=== PATIENT | male | born 1975 | race African-American/Black ===

== ENCOUNTER 2019-05-05 18:49 | Emergency (ER) | payer OTHER ==
[2019-05-05] MEDS ORDERED: Sodium Chloride 0.9% 10 ML Syringe FLUSH PRN (19:42)
[2019-05-05] MEDS ORDERED: Sodium Chloride 0.9% 2.5 ML Syringe FLUSH PRN (19:42)
[2019-05-05] MEDS ORDERED: Ondansetron 4 MG/2 ML SDV IVPUSH ONE (19:42)
[2019-05-05] MEDS ORDERED: Sodium Chloride 0.9% 1,000 ML IV SCH (19:45)
[2019-05-05] MEDS ORDERED: Ketorolac 30 MG/ML SDV IVPUSH ONE (20:51)
[2019-05-05 20:54] LABS: BLOOD UREA NITROGEN,BUN 19 mg/dL (7.0-18.0); CARBON DIOXIDE,CO2 26.4 mmol/L (21.0-32.0); CHLORIDE,CL 96 mmol/L (98-107); GLUCOSE RANDOM 171 mg/dL (74-106); POTASSIUM,K 4.3 mmol/L (3.5-5.1); SODIUM,NA 136 mmol/L (136-148)
[2019-05-05] MEDS ORDERED: Iopamidol 755 Mg/ML 100 ML Bottle IVPUSH STA (22:09)
--- NOTE | 2019-05-05 22:57 | CT ---
INDICATION: Abdominal pain. TECHNIQUE: Contrast and CT abdomen and pelvis coronal size re-formatted images obtained. COMPARISON: No comparison studies are available Findings: Heart size is normal. Lung bases are clear. No pleural effusion or pericardial effusion. Fatty liver. Gallbladder, pancreas adrenal glands are unremarkable spleen is unremarkable. Symmetric enhancement of both kidneys which are unremarkable. There fluid-filled mildly prominent small bowel loops. There is mesenteric stranding and fluid in the right lower quadrant. In the distal ileum just proximal to the terminal ileum there is an area of focal narrowing and mucosal hyperenhancement. Few additional subtle skip areas of small bowel narrowing. Small amount of fluid in the pelvis. Normal appendix. Urinary bladder decompressed. No suspicious bony lesions. IMPRESSION: 1. Mild fluid-filled prominent small bowel loops with mesenteric stranding fluid in the right lower quadrant. Skip areas of small bowel narrowing. Findings may represent enteritis versus possible Crohn`s disease. 2. Normal appendix. Please note that all CT scans at this facility use dose modulation, iterative reconstruction, and/or weight-based dosing when appropriate to reduce radiation dose to as low as reasonably achievable. Dictated by Autumn Hmuphries MD @ May 05 2019 10:45PM Signed by Dr. Autumn Humphries @ May 05 2019 10:54PM
--- NOTE | 2019-05-05 23:03 | CR ---
INDICATION: Shortness of breath TECHNIQUE: Single view chest. FINDINGS: The lungs are clear. The heart, mediastinum and pulmonary vessels are of normal size. There is no evidence of pleural disease. IMPRESSION: Negative chest. Dictated by Autumn Humphries MD @ May 05 2019 11:01PM Signed by Dr. Autumn Humphries @ May 05 2019 11:02PM
--- NOTE | 2019-05-05 23:24 | EDM.PDOC ---
ED [facility] GENERAL MEDICAL PROBLEM - General Chief Complaint: Gastrointestinal Problem Stated Complaint: bad cramps Time Seen by Provider: 05/05/19 21:09 - History of Present Illness INITIAL COMMENTS - FREE TEXT/NARRATIVE: HPI 43-year-old gentleman presents for evaluation of one day of N/V/D. Notes resolved symptoms, endorses prior crampy abdominal pain. No dysuria, urinary frequency, chest pain, shortness breath. No identifiable provoking or relieving symptoms. They will M/S/F/SocHx notable for: please see HPI; remainder reviewed with patient and in chart. ROS: Negative constitutional, eye, cardiovascular, pulmonary, GI, , MSK, skin , neurologic, psychiatric, endocrine unless noted in the HPI. Exam Gen: Pleasant, non-toxic appearing, resting comfortably. HEENT: NC, AT, PEERL, EOMI. Resp: Clear to auscultation bilaterally, normal work of breathing, no accessory muscle usage. Card: Regular rate and rhythm with no murmurs, rubs, or gallops, extremities warm and well perfused. GI: Non-tender to palpation throughout all quadrants, no focal tenderness at McBurney's point, negative Page's sign, non-distended, no rebound or guarding. : No suprapubic tenderness to palpation. MSK: No visible deformities, strength and tone without visually appreciable deficit. Skin: Normal color with no visible lesions. Neuro: alert and oriented 3, no facial asymmetry, vision and hearing WNL. Psych: Mood and affect appropriate. Labs / Imaging: WBC 20.1, HB 16.6, sodium 136, potassium 4.3, glucose 171, AST 25, ALT 34, alkaline phosphatase 60, total bilirubin 0.7, lipase 181. Troponin <0.050. UA negative nitrite, negative leukocyte esterase, rare bacteria. CXR: no acute cardiopulmonary disease process. CT abdomen/pelvis: multiple fluid-filled prominent small bowel loops with mesenteric stranding fluid in the right lower quadrant. Skip areas of bowel narrowing. Findings may represent enteritis versus possible Crohns disease. 2. Normal appendix. EKG: SR 63 bpm, QTc [address] segment elevations or depressions. MDM Previous chart, nursing note, labs, imaging, and vitals reviewed. A: 43-year-old gentleman presents for evaluation of one day of N/V/D. DDx: UTI, ureterolithiasis, pyelonephritis, acute appendicitis, mesenteric adenitis, biliary disease Evaluation: CT with findings concerning for enteritis versus Crohns disease. Discuss management options with patient, patient reports that he has had resolution symptoms with return of appetite while in the emergency department. Offered admission (recommended), patient wished to be discharged as he is feeling better. Reviewed risks and benefits, concern for Sears diagnosis, and need for prompt PCP follow-up. In an abundance of caution, the patient was prescribed ciprofloxacin and Flagyl for treatment of possible bacterial enteritis versus initial treatment of crowns, patient prescribed Zofran for nausea, patient instructed follow-up with his PCP within 1-2 days. Return to care precautions provided. Impression: abdominal pain, Crohns versus enteritis. abdomen Pain Score (Numeric/FACES): 8 - Related Data Allergies Allergy/AdvReac Type Severity Reaction Status Date / Time No Known Allergies Allergy Verified 05/05/19 19:30 Home Meds: Home Meds Allopurinol [Zyloprim] 100 mg PO DAILY 05/05/19 [History] Ciprofloxacin HCl [Cipro] 500 mg PO BID #20 tablet 05/05/19 [Rx] Naltrexone 50 mg PO DAILY 05/05/19 [History] Ondansetron [Zofran ODT] 4 mg PO Q6H PRN #10 tab.dis 05/05/19 [Rx] metroNIDAZOLE [Flagyl] 500 mg PO Q12H #20 tab 05/05/19 [Rx] Past Medical History Musculoskeletal History: Reports: Gout Psychiatric History: Reports: Addiction, Other (See Below) Other Psychiatric History: alcohol - Past Surgical History Musculoskeletal Surgical History: Reports: Carpal Tunnel Social & Family History - Family History Family Medical History: Noncontributory - Tobacco Use Smoking Status *Q: Never Smoker - Recreational Drug Use Recreational Drug Use: No ED ROS GENERAL - Review of Systems Review Of Systems: See Below ED EXAM, GENERAL - Physical Exam Exam: See Below Course - Vital Signs Last Recorded V/S: Last Vital Signs Temp 37.1 C 05/05/19 19:00 Pulse 67 05/05/19 20:49 Resp 18 05/05/19 20:49 BP 151/90 H 05/05/19 20:49 Pulse Ox 97 05/05/19 19:00 - Orders/Labs/Meds Orders: Active Orders 24 hr Category Date Time Status EKG 12 Lead [EKG Documentation Completion] [RC] STAT Care 05/05/19 23:21 Active Sodium Chloride 0.9% [Normal Saline] 1,000 ml Med 05/05/19 19:45 Active IV ASDIRECTED Sodium Chloride 0.9% [Saline Flush] Med 05/05/19 19:42 Active 10 ml FLUSH ASDIRECTED PRN Sodium Chloride 0.9% [Saline Flush] Med 05/05/19 19:42 Active 2.5 ml FLUSH ASDIRECTED PRN Saline Lock Insert [OM.PC] Stat Oth 05/05/19 19:42 Ordered Medication Orders Sodium Chloride (Normal Saline) 1,000 mls @ 999 mls/hr IV ASDIRECTED MANNY Last Admin: 05/05/19 19:47 Dose: 999 mls/hr Sodium Chloride (Saline Flush) 10 ml FLUSH ASDIRECTED PRN PRN Reason: Keep Vein Open Sodium Chloride (Saline Flush) 2.5 ml FLUSH ASDIRECTED PRN PRN Reason: Keep Vein Open Labs: Laboratory Tests 05/05/19 05/05/19 05/05/19 Range/Units 19:15 19:15 19:15 WBC 20.10 H (4.0-11.0) K/uL RBC 5.71 (4.50-5.90) M/uL Hgb 16.6 (13.0-17.0) g/dL Hct 48.8 (38.0-50.0) % MCV 85.5 (80.0-98.0) fL MCH 29.1 (27.0-32.0) pg MCHC 34.0 (31.0-37.0) g/dL RDW Std Deviation 41.9 (28.0-62.0) fl RDW Coeff of Jam 14 (11.0-15.0) % Plt Count 320 (150-400) K/uL MPV 9.80 (7.40-12.00) fL Neut % (Auto) 81.8 H (48.0-80.0) % Lymph % (Auto) 9.8 L (16.0-40.0) % [place] % (Auto) 8.3 (0.0-15.0) % Eos % (Auto) 0.0 (0.0-7.0) % Baso % (Auto) 0.1 (0.0-1.5) % Neut # (Auto) 16.5 H (1.4-5.7) K/uL Lymph # (Auto) 2.0 (0.6-2.4) K/uL [place] # (Auto) 1.7 H (0.0-0.8) K/uL Eos # (Auto) 0.0 (0.0-0.7) K/uL Baso # (Auto) 0.0 (0.0-0.1) K/uL Nucleated RBC % 0.0 /100WBC Nucleated RBCs # 0 K/uL Sodium 136 (136-148) mmol/L Potassium 4.3 (3.5-5.1) mmol/L Chloride 96 L (98-107) mmol/L Carbon Dioxide 26.4 (21.0-32.0) mmol/L BUN 19 H (7.0-18.0) mg/dL Creatinine 1.1 (0.8-1.3) mg/dL Est Cr Clr Drug Dosing 85.70 mL/min Estimated GFR (MDRD) > 60.0 ml/min Glucose 171 H (74-106) mg/dL Calcium 10.0 (8.5-10.1) mg/dL Total Bilirubin 0.7 (0.2-1.0) mg/dL AST 25 (15-37) IU/L ALT 34 (14-63) IU/L Alkaline Phosphatase 60 (46-116) U/L Troponin I (0.000-0.056) ng/mL Total Protein 9.0 H (6.4-8.2) g/dL Albumin 4.3 (3.4-5.0) g/dL Globulin 4.7 H (2.6-4.0) g/dL Albumin/Globulin Ratio 0.9 (0.9-1.6) Amylase (25-115) U/L Lipase 181 (73-393) U/L Urine Color Urine Appearance Urine pH (5.0-8.0) Ur Specific [place] (1.001-1.035) Urine Protein (NEGATIVE) mg/dL Urine Glucose (UA) (NEGATIVE) mg/dL Urine Ketones (NEGATIVE) mg/dL Urine Occult Blood (NEGATIVE) Urine Nitrite (NEGATIVE) Urine Bilirubin (NEGATIVE) Urine Urobilinogen (<2.0) EU/dL Ur Leukocyte Esterase (NEGATIVE) Urine RBC (0-2/HPF) Urine WBC (0-5/HPF) Ur Epithelial Cells (NONE-FEW) Urine Bacteria (NEGATIVE) Urine Mucus (NONE-MOD) 05/05/19 05/05/19 05/05/19 Range/Units 19:15 19:15 21:05 WBC (4.0-11.0) K/uL RBC (4.50-5.90) M/uL Hgb (13.0-17.0) g/dL Hct (38.0-50.0) % MCV (80.0-98.0) fL MCH (27.0-32.0) pg MCHC (31.0-37.0) g/dL RDW Std Deviation (28.0-62.0) fl RDW Coeff of Jam (11.0-15.0) % Plt Count (150-400) K/uL MPV (7.40-12.00) fL Neut % (Auto) (48.0-80.0) % Lymph % (Auto) (16.0-40.0) % [place] % (Auto) (0.0-15.0) % Eos % (Auto) (0.0-7.0) % Baso % (Auto) (0.0-1.5) % Neut # (Auto) (1.4-5.7) K/uL Lymph # (Auto) (0.6-2.4) K/uL [place] # (Auto) (0.0-0.8) K/uL Eos # (Auto) (0.0-0.7) K/uL Baso # (Auto) (0.0-0.1) K/uL Nucleated RBC % /100WBC Nucleated RBCs # K/uL Sodium (136-148) mmol/L Potassium (3.5-5.1) mmol/L Chloride (98-107) mmol/L Carbon Dioxide (21.0-32.0) mmol/L BUN (7.0-18.0) mg/dL Creatinine (0.8-1.3) mg/dL Est Cr Clr Drug Dosing mL/min Estimated GFR (MDRD) ml/min Glucose (74-106) mg/dL Calcium (8.5-10.1) mg/dL Total Bilirubin (0.2-1.0) mg/dL AST (15-37) IU/L ALT (14-63) IU/L Alkaline Phosphatase (46-116) U/L Troponin I < 0.050 (0.000-0.056) ng/mL Total Protein (6.4-8.2) g/dL Albumin (3.4-5.0) g/dL Globulin (2.6-4.0) g/dL Albumin/Globulin Ratio (0.9-1.6) Amylase 46 (25-115) U/L Lipase (73-393) U/L Urine Color YELLOW Urine Appearance CLEAR Urine pH 7.0 (5.0-8.0) Ur Specific [place] 1.020 (1.001-1.035) Urine Protein 30 H (NEGATIVE) mg/dL Urine Glucose (UA) NEGATIVE (NEGATIVE) mg/dL Urine Ketones NEGATIVE (NEGATIVE) mg/dL Urine Occult Blood NEGATIVE (NEGATIVE) Urine Nitrite NEGATIVE (NEGATIVE) Urine Bilirubin NEGATIVE (NEGATIVE) Urine Urobilinogen 1.0 (<2.0) EU/dL Ur Leukocyte Esterase NEGATIVE (NEGATIVE) Urine RBC 0-2 (0-2/HPF) Urine WBC 0-2 (0-5/HPF) Ur Epithelial Cells OCCASIONAL (NONE-FEW) Urine Bacteria RARE (NEGATIVE) Urine Mucus MODERATE (NONE-MOD) Meds: Medications Generic Name Dose Route Start Last Admin Trade Name Alondra PRN Reason Stop Dose Admin Sodium Chloride 1,000 mls @ 999 mls/hr 05/05/19 19:45 05/05/19 19:47 Normal Saline IV 999 mls/hr ASDIRECTED MANNY Administration Sodium Chloride 10 ml 05/05/19 19:42 Saline Flush FLUSH ASDIRECTED PRN Keep Vein Open Sodium Chloride 2.5 ml 05/05/19 19:42 Saline Flush FLUSH ASDIRECTED PRN Keep Vein Open Discontinued Medications Generic Name Dose Route Start Last Admin Trade Name Alondra PRN Reason Stop Dose Admin Iopamidol 100 ml 05/05/19 22:09 05/05/19 22:10 Isovue-370 (76%) IVPUSH 05/05/19 22:10 100 ml ONETIME STA Administration Ketorolac Tromethamine 30 mg 05/05/19 20:51 05/05/19 21:05 Toradol IVPUSH 05/05/19 20:52 30 mg ONETIME ONE Administration Ondansetron HCl 4 mg 05/05/19 19:42 05/05/19 19:47 Zofran IVPUSH 05/05/19 19:43 4 mg ONETIME ONE Administration Departure - Departure Time of Disposition: 23:22 Disposition: Home, Self-Care 01 Clinical Impression: Abdominal pain - Discharge Information Prescriptions: Ciprofloxacin HCl [Cipro] 500 mg PO BID #20 tablet metroNIDAZOLE [Flagyl] 500 mg PO Q12H #20 tab Ondansetron [Zofran ODT] 4 mg PO Q6H PRN #10 tab.dis PRN Reason: Nausea Referrals: Brenda Elder FRONT OFFICE ADMINISTRATOR [Primary Care Provider] - Forms: ED Department Discharge Additional Instructions: You were in seen in the [facility] Emergency Department for evaluation of nausea, vomiting, and abdominal pain. At the time of your evaluation your symptoms are tentatively believed to be due to enteritis, inflammation of your bowels usually caused by viruses or bacteria. However as we discussed, there is a possibility this may be due to a condition called Crohns disease. You have been prescribed ciprofloxacin, Flagyl, and for nausea a medication called Zofran. Please take these as prescribed and follow- up your primary care physician within 2 days for repeat evaluation and further care as needed. As we discussed, admission to the hospital for further care was recommended, however after discussion of risks and benefits you made an informed decision to be discharged home. Please read and follow all of the instructions below. When calling for follow-up care, please make the office aware that this follow- up is from your recent emergency room visit. If for any reason you are refused follow-up, please contact the [facility] Emergency Department at and asked to speak to the emergency department charge nurse. Your care today was limited to identifying and treating emergent medical problems only. Many people have subtle differences in their test results that require follow up with their outpatient physician(s) to correctly determine if this represents a normal variation or concerning abnormality with respect to your specific health. The care given to you today was limited to identifying and treating emergent medical problems - you need to request a copy of all of your medical records from today's visit and follow up with your outpatient physician(s) to review both today's visit and your overall health. If you have any new symptoms or if you are at all concerned about your health please return immediately to the emergency department. Prescriptions: If you are uninsured or have financial difficulties with filling your prescription(s), you may consider using a free pharmacy discount service such as [employer] ([employer]) or [employer] ([employer]). These services allow you to search for a medication on your phone (or computer) and obtain a coupon that usually has a significant discount from the list pruitt at a pharmacy. Your physician as well as [facility] does not have a financial relationship with either of these services. You may also wish to speak with your physician to determine if lower cost prescriptions are possible. Obtaining primary care: 1. [facility] provides pediatrics (children), family medicine (children, adults, and some obstetrical care), and internal medicine (adults). Further specialty care is also available. Same day appointments are available. They may be contacted at [phone] and are open Tuesday through Tuesday 8 AM to 5 PM. The [facility] are located at [facility], [address] [place] [address]. 2. [facility] offers family medicine, internal medicine, [facility], and further specialty care. [facility] may be contacted at [phone]. [facility] is located at [address] [place], [address]. 3. If you have health insurance, please also contact your insurer for a list of accepting providers under your policy, you may contact these providers for further health care. Occupational health: Work related injuries may consider following up with [facility], . Occupational health services are located at [address] [place] [address] and are open Tuesday through Tuesday from 7: 30 am to 5:00 pm. Obstetrical and Gynecological Care: [facility], , Tuesday through Tuesday 8 AM to 5 PM. [address], [place] [address]. Eyecare: If you have an eye injury you should follow up with your cap parts cutter or with [facility], at [phone] or [phone] , they are located at [address] [place] [address]. Dental Care Brandon Mansfield DDS. [address] [facility] [place], [place]. Ph. [phone] Hugh Mansfield DDS MS. [address] [facility] [address], [place], [place]. Ph. Panda Dahl DDS. 10 05/[address] [place] [address]. Ph. [phone] Cristino Solis DDS. [address] [facility] [address] [place], [place]. Ph. [phone] Tomy Gonzalez DDS PC. [address] [facility] [address] [place], [place]. Ph. [phone] Truman Hoffman DDS. [address] [facility]. Ph. [phone] [facility]. [address] [place], [place]. Ph. [phone] [facility]. [address] [place] [address], [place], [place]. Ph. [phone] [facility] [address] [place] [address]. Ph. [phone] [facility]. [address] [place] [address] [address] [place], [place]. Ph. [facility]. [address] [place], [place]. Ph. Abdominal Pain The exact cause of your abdominal pain is not certain. Based upon the testing today you are felt to be at low risk for discharge. There are no current signs of a life threatening illness or injury. Your condition does not seem serious now; however, sometimes the signs of a serious problem may take more time to appear. For this reason, it is important for you to watch for any new symptoms, problems, or worsening of your condition. Over the next few days, the abdominal pain may come and go, or be continuous. Other common symptoms can include nausea and vomiting. Sometimes it can be difficult to tell if you feel nauseous , you may just feel bad and not associate that feeling with nausea. Constipation , diarrhea, and a fever may go along with the pain. The pain may continue even if treated correctly over the following days. Depending on how things go, sometimes the cause can become clear and may require further or different treatment. Additional evaluations, medications, or tests may be needed. If your symptoms do not worsen but you are still having pain after 12-24 hours, please call your primary care physician to arrange for further evaluation. Return to the emergency department if any of the following occur: Pain gets worse or moves to the right lower abdomen New or worsening vomiting or diarrhea Swelling of the abdomen Unable to pass gas or stool for more than 8 hours Fever of 100.4F (38C) or higher, or as directed by your healthcare provider. Blood in vomit or bowel movements (dark red or black color) If you have yellow skin or eyes or if you have dark brown urine. Weakness, dizziness Chest, arm, back, neck or jaw pain Unexpected vaginal bleeding or missed period Trouble breathing Confusion Fainting or loss of consciousness Rapid heart rate Seizure If you are light headed upon standing or passing out. If you are otherwise concerned about your health. Home Care Do not force yourself to eat, especially if having cramps, vomiting, or diarrhea. Water is important so you do not get dehydrated. Soup may also be good. Sports drinks may also help, especially if they are not too acidic. Make sure you don't drink sugary drinks as this can make things worse. Take liquids in small amounts. Caffeine sometimes makes the pain and cramping worse. Avoid dairy products if you have vomiting or diarrhea. Don't eat large amounts at a time. Wait a few minutes between bites. Eat a diet low in fiber (called a low-residue diet). Foods allowed include refined breads, white rice, fruit and vegetable juices without pulp, tender meats. These foods will pass more easily through the intestine. Avoid whole-grain foods, whole fruits and vegetables, meats, seeds and nuts, fried or fatty foods, dairy, alcohol and spicy foods until your symptoms go away. Ondansetron (Brand Name: Zofran) Take one tablet every 6 hours as needed for nausea SIDE EFFECTS: Headache, fever, lightheadedness, dizziness, drowsiness, tiredness , constipation. If these effects persist or worsen, notify your doctor promptly. Many people using this medication do not have serious side effects. Tell your doctor right away if you have any serious side effects, including: stomach pain, muscle stiffness/spasm, vision changes (e.g., temporary loss of vision, blurred vision, uncontrollable eye movements). Get medical help right away if any of these rare but very serious side effects occur: chest pain, fainting, slow/fast/irregular heartbeat. A very serious allergic reaction to this drug is rare. However, get medical help right away if you notice any of the following symptoms of a serious allergic reaction: rash, itching/swelling ( especially of the face/tongue/throat), severe dizziness, trouble breathing. This is not a complete list of possible side effects. If you notice other effects not listed above, contact your doctor or pharmacist. PRECAUTIONS: Before using ondansetron, tell your doctor or pharmacist if you are allergic to it; or to other serotonin blockers (e.g., granisetron); or if you have any other allergies. This product may contain inactive ingredients, which can cause allergic reactions or other problems. Talk to your pharmacist for more details. Before using this medication, tell your doctor or pharmacist your medical history, especially of: irregular heartbeat, liver disease, stomach /intestinal problems (e.g., recent abdominal surgery, ileus, swelling). Ondansetron may cause a condition that affects the heart rhythm (QT prolongation ). QT prolongation can infrequently result in serious (rarely fatal) fast/ irregular heartbeat and other symptoms (such as severe dizziness, fainting) that require immediate medical attention. The risk of QT prolongation may be increased if you have certain medical conditions or are taking other drugs that may affect the heart rhythm (see also Drug Interactions section). Before using ondansetron, tell your doctor or pharmacist if you have any of the following conditions: certain heart problems (heart failure, slow heartbeat, QT prolongation in the EKG), family history of certain heart problems (QT prolongation in the EKG, sudden cardiac ). Low levels of potassium or magnesium in the blood may also increase your risk of QT prolongation. This risk may increase if you use certain drugs (such as diuretics/"water pills") or if you have conditions such as severe sweating, diarrhea, or vomiting. Talk to your doctor about using ondansetron safely. This drug may make you dizzy or drowsy or cause blurred vision. Do not drive, use machinery, or do any activity that requires alertness or clear vision until you are sure you can perform such activities safely. Limit alcoholic beverages. Infants younger than 5 months may be more sensitive to the effects of this drug, especially diarrhea. During , this medication should be used only when clearly needed. Discuss the risks and benefits with your doctor. It is not known if this drug passes into breast milk. Consult your doctor before breast-feeding. DRUG INTERACTIONS: Drug interactions may change how your medications work or increase your risk for serious side effects. This document does not contain all possible drug interactions. Keep a list of all the products you use (including prescription/nonprescription drugs and herbal products) and share it with your doctor and pharmacist. Do not start, stop, or change the dosage of any medicines without your doctor's approval. Some products that may interact with this drug include: apomorphine, tramadol. Many drugs besides ondansetron may affect the heart rhythm (QT prolongation), including dofetilide, pimozide, procainamide, amiodarone, quinidine, sotalol, macrolide antibiotics (such as erythromycin), among others. Therefore, before using ondansetron, report all medications you are currently using to your doctor or pharmacist. Ciprofloxacin (Brand Name: Cipro) This medication is used to treat a variety of bacterial infections. Ciprofloxacin belongs to a class of drugs called quinolone antibiotics. It works by stopping the growth of bacteria. This antibiotic treats only bacterial infections. It will not work for virus infections (such as common cold, flu). Ciprofloxacin - How To Use: * This medication may be taken with or without food as directed by your doctor, usually twice a day in the morning and evening. * If you are using a liquid form of this drug, shake the container well for 15 seconds before pouring each dose. Carefully measure the dose using a special measuring device/spoon. Do not use a household spoon because you may not get the correct dose. Do not chew the contents of the suspension. * Take this medication at least 2 hours before or 6 hours after taking other products that may bind to it, decreasing its effectiveness. Ask your pharmacist about the other products you take. Some examples include: quinapril, sevelamer, sucralfate, vitamins/minerals (including iron and zinc supplements), and products containing magnesium, aluminum, or calcium (such as antacids, didanosine solution, calcium supplements). * Calcium-rich foods, including dairy products (such as milk, yogurt) or calcium -enriched juice, can also decrease the effect of this medication. Take this medication at least 2 hours before or 6 hours after eating calcium-rich foods, unless you are eating these foods as part of a larger meal that contains other ( [id number]) foods. These other foods decrease the calcium binding effect. * Ask your doctor or pharmacist about safely using nutritional supplements/ replacements with this medication. * Antibiotics work best when the amount of medicine in your body is kept at a constant level. Therefore, take this drug at evenly spaced intervals. * Continue to take this medication until the full prescribed amount is finished , even if symptoms disappear after a few days. Stopping the medication too early may result in a return of the infection. * Please read all the package instructions with this medication. Ciprofloxacin - Side Effects: * Nausea, diarrhea, dizziness, lightheadedness, headache, or trouble sleeping may occur. If any of these effects persist or worsen, tell your doctor or pharmacist promptly. * Tell your doctor right away if you have any serious side effects, including: skin that sunburns more easily (sun sensitivity), unusual bruising/bleeding, signs of a new infection (such as new/persistent fever, persistent sore throat) , unusual change in the amount of urine, change in color of urine (red/pink color), signs of liver problems (such as unusual tiredness, stomach/abdominal pain, persistent nausea/vomiting, yellowing eyes/skin, dark urine). * Get medical help right away if you have any very serious side effects, including: severe/persistent headache, vision changes, shaking (tremors), seizures, severe dizziness, fainting, fast/irregular heartbeat, mental/mood changes (such as anxiety, confusion, hallucinations, depression, rare thoughts of suicide). * Rarely, this medication may cause serious, possibly permanent, nerve problems (peripheral neuropathy). Stop taking ciprofloxacin and tell your doctor right away if you have any of the following symptoms: pain/numbness/burning/tingling/ weakness in your arms, hands, legs, or feet, changes in how you sense touch/pain /temperature/vibration/body position. * This medication may rarely cause a severe intestinal condition (Clostridium difficile-associated diarrhea) due to a type of resistant bacteria. This condition may occur during treatment or weeks to months after treatment has stopped. Tell your doctor right away if you develop: persistent diarrhea, abdominal or stomach pain/cramping, blood/mucus in your stool. * Do not use anti-diarrhea products or narcotic pain medications if you have any of these symptoms because these products may make them worse. * Use of this medication for prolonged or repeated periods may result in oral thrush or a new yeast infection. Contact your doctor if you notice white patches in your mouth, a change in vaginal discharge, or other new symptoms. * A very serious allergic reaction to this drug is rare. However, get medical help right away if you notice any of the following symptoms of a serious allergic reaction: rash, itching/swelling (especially of the face/tongue/throat) , severe dizziness, trouble breathing. * This is not a complete list of possible side effects. If you notice other effects not listed above, contact your doctor or pharmacist. Ciprofloxacin - Precautions: * This medication is associated with an increased risk of tendon rupture. Tendons are the areas that connect your muscles to your joints, an example would be the Achilles tendon at the back of your ankle. You will have increased risk of tendon rupture if you are older than 60 years, take steroids ( corticosteroids) or are kidney, heart, or lung transplant recipient. While there is a risk of tendon rupture, the overall risk versus benefits of this medication were considered at the time of this drug being prescribed. Call your healthcare provider right away at the first signs or symptoms of pain, swelling or inflammation in a tendon area. These could be symptoms of tendinitis or tendon rupture. Stop taking your ciprofloxacin until a healthcare provider has determined that you do not have tendinitis or a tendon rupture. Signs or symptoms of tendon rupture include: a snap or pop in a tendon area, bruising right after an injury in a tendon area, inability to move the affected area or bear weight. * Before taking ciprofloxacin, tell your doctor or pharmacist if you are allergic to it; or to other quinolone antibiotics such as norfloxacin, gemifloxacin, levofloxacin, moxifloxacin, or ofloxacin; or if you have any other allergies. This product may contain inactive ingredients, which can cause allergic reactions or other problems. Talk to your pharmacist for more details. * This medication may rarely cause tendon damage (such as tendonitis, tendon rupture) during or after treatment. Your risk for tendon problems is greater if you are over 60 years of age, if you are taking corticosteroids (such as prednisone), or if you have a kidney, heart, or lung transplant. Stop exercising , rest, and get medical help right away if you develop joint/muscle/tendon pain or swelling. * Ciprofloxacin should not be used by patients with myasthenia gravis. It may cause the condition to become worse. Get medical help right away if you develop muscle weakness or trouble breathing. * Before using this medication, tell your doctor or pharmacist your medical history, especially of: diabetes, heart problems (such as recent heart attack), joint/tendon problems (such as tendonitis, bursitis), kidney disease, liver disease, myasthenia gravis, nerve problems (such as peripheral neuropathy), seizures, conditions that increase your risk of seizures (such as brain/head injury, brain tumors, cerebral atherosclerosis). * Ciprofloxacin may cause a condition that affects the heart rhythm (QT prolongation). QT prolongation can rarely cause serious (rarely fatal) fast/ irregular heartbeat and other symptoms (such as severe dizziness, fainting) that need medical attention right away. * The risk of QT prolongation may be increased if you have certain medical conditions or are taking other drugs that may cause QT prolongation. Before using ciprofloxacin, tell your doctor or pharmacist of all the drugs you take and if you have any of the following conditions: certain heart problems (heart failure, slow heartbeat, QT prolongation in the EKG), family history of certain heart problems (QT prolongation in the EKG, sudden cardiac ). * Low levels of potassium or magnesium in the blood may also increase your risk of QT prolongation. This risk may increase if you use certain drugs (such as diuretics/"water pills") or if you have conditions such as severe sweating, diarrhea, or vomiting. Talk to your doctor about using ciprofloxacin safely. * This medication may rarely cause serious changes in blood sugar levels, especially if you have diabetes. Watch for symptoms of high blood sugar including increased thirst and urination. Ciprofloxacin may increase the blood sugar-lowering effects of the medication glyburide. Also watch for symptoms of low blood sugar such as sudden sweating, shaking, fast heartbeat, hunger, blurred vision, dizziness, or tingling hands/feet. Check your blood sugar regularly as directed by your doctor and report any changes. If you experience symptoms of low blood sugar, you may raise your blood sugar by using glucose tablets/gel or eating a quick source of sugar such as table sugar, honey, or candy, or drinking fruit juice or non-diet soda. Tell your doctor right away about the reaction and the use of this product. To help prevent low blood sugar , eat meals on a regular schedule, and do not skip meals. Your doctor may need to switch you to another antibiotic or adjust your diabetes medications if any reaction occurs. * This drug may make you dizzy. Do not drive, use machinery, or do any activity that requires alertness until you are sure you can perform such activities safely. Limit alcoholic beverages. * This medication may make you more sensitive to the sun. Avoid prolonged sun exposure, tanning booths, and sunlamps. Use a sunscreen and wear protective clothing when outdoors. Other medications (such as tretinoin-mequinol) may increase your sun sensitivity. Ask your doctor or pharmacist for more details. * Ciprofloxacin may cause live bacterial vaccines (such as typhoid vaccine) not to work as well. Therefore, do not have any immunizations/vaccinations while using this medication without the consent of your doctor. * Before having surgery, tell your doctor or dentist about all the products you use (including prescription drugs, nonprescription drugs, and herbal products). * This medication contains sucrose and is therefore not recommended if you have a rare hereditary metabolic condition (such as fructose intolerance, sucrase- isomaltase deficiency, glucose-galactose malabsorption). * Children may be more sensitive to the side effects of this drug, especially joint/tendon problems. * Older adults may be more sensitive to the side effects of this drug, especially tendon problems (especially if they are also taking corticosteroids such as prednisone or hydrocortisone) and QT prolongation (see above). * During , this medication should be used only when clearly needed. Discuss the risks and benefits with your doctor. * This medication passes into breast milk. Consult your doctor before breast- feeding. Ciprofloxacin - Drug Interactions: * Drug interactions may change how your medications work or increase your risk for serious side effects. This document does not contain all possible drug interactions. Keep a list of all the products you use (including prescription/ nonprescription drugs and herbal products) and share it with your doctor and pharmacist. Do not start, stop, or change the dosage of any medicines without your doctor's approval. * Some products that may interact with this drug include: "blood thinners" ( such as acenocoumarol, warfarin), strontium. * Many drugs besides ciprofloxacin may affect the heart rhythm (QT prolongation) , including amiodarone, dofetilide, quinidine, procainamide, sotalol, among others. * This medication can slow down the removal of other medications from your body , which may affect how they work. Examples of affected drugs include duloxetine , pirfenidone, tasimelteon, tizanidine, among others. * Avoid drinking large amounts of beverages containing caffeine (coffee, tea, aamir), eating large amounts of chocolate, or taking [id number] products that contain caffeine. This drug may increase and/or prolong the effects of caffeine. Although most antibiotics are unlikely to affect hormonal control such as pills, patch, or ring, a few antibiotics (such as rifampin, rifabutin) can decrease their effectiveness. This could result in . If you use hormonal control, ask your doctor or pharmacist for more details. Metronidazole (Brand Name: Flagyl) Take this medication as prescribed. Call your physician or the emergency deparment if you believe you are having side effects due to this drug. Please read the warnings below. FLAGYL - USES: Metronidazole is used to treat a variety of infections. It belongs to a class of antibiotics known as nitroimidazoles. It works by stopping the growth of bacteria and protozoa. This antibiotic only treats bacterial and protozoal infections. It will not work for viral infections (e.g. , common cold, flu). Unnecessary use or overuse of any antibiotic can lead to its decreased effectiveness. FLAGYL - HOW TO USE: This medication may be taken with food or a full glass of water or milk to prevent stomach upset. Dosage is based on your medical condition, the type of infection being treated, and your response to therapy. Antibiotics work best when the amount of medicine in your body is kept at a constant level. Therefore, take this drug at evenly spaced intervals. Continue to take this medication until the full prescribed amount is finished, even if symptoms disappear after a few days. Stopping the medication too early may allow bacteria/protozoa to continue to grow, which may result in a relapse of the infection. Inform your doctor if your condition persists or worsens. FLAGYL - SIDE EFFECTS: Dizziness, headache, diarrhea, nausea, stomach pain, loss of appetite, constipation, changes in taste, and dry mouth may occur. If any of these effects persist or worsen, notify your doctor or pharmacist promptly. This drug may cause urine to darken in color. This is harmless. Remember that your doctor has prescribed this medication because he or she has judged that the benefit to you is greater than the risk of side effects. Many people using this medication do not have serious side effects. Tell your doctor immediately if any of these unlikely but serious side effects occur: unsteadiness, seizures, mental/mood changes (such as confusion), numbness/ tingling of hands/feet, painful urination. Tell your doctor immediately if any of these rare but very serious side effects occur: eye pain, severe/persistent headache, sudden vision changes, stiff/painful neck, sore throat, persistent fever, unusual bleeding/bruising, severe stomach pain, persistent nausea/ vomiting. Use of this medication for prolonged or repeated periods may result in oral thrush or a new vaginal yeast infection (oral or vaginal fungal infection). Contact your doctor if you notice white patches in your mouth, a change in vaginal discharge, or other new symptoms. A very serious allergic reaction to this drug is unlikely, but seek immediate medical attention if it occurs. Symptoms of a serious allergic reaction may include: rash, itching/ swelling (especially of the face/tongue/throat), severe dizziness, trouble breathing. This is not a complete list of possible side effects. If you notice other effects not listed above, contact your doctor or pharmacist. FLAGYL - PRECAUTIONS: Before taking metronidazole, tell your doctor or pharmacist if you are allergic to it; or to other nitroimidazoles such as tinidazole; or if you have any other allergies. This product may contain inactive ingredients, which can cause allergic reactions or other problems. Talk to your pharmacist for more details. Before using this medication, tell your doctor or pharmacist your medical history, especially of: liver problems, nervous system disorders (e.g., seizures), blood disorders, Crohn's disease. Avoid alcoholic beverages while taking this medication and for at least 1 day ( 3 days if you are taking the oral capsules) after finishing this medicine because drinking alcohol may result in severe stomach upset/cramps, nausea, vomiting, headache and flushing. This drug may make you dizzy. Do not drive, use machinery, or do any activity that requires alertness until you are sure you can perform such activities safely. The elderly may be at greater risk for side effects while using this drug. Tell your doctor if you are before using this drug. It should not be used during the first 3 months of and used only with caution during the last 6 months, unless your infection has not improved on other antibiotics. This medication passes into breast milk. Discuss the risks and benefits with your doctor before breast-feeding. If you are prescribed the single-dose treatment, your doctor may direct you to interrupt breast-feeding for a short time after the dose. Consult your doctor for more details. FLAGYL - DRUG INTERACTIONS: Your healthcare professionals (e.g., doctor or pharmacist) may already be aware of any possible drug interactions and may be monitoring you for it. Do not start, stop or change the dosage of any medicine before checking with them first. This drug should not be used with the following medications because very serious interactions may occur: alcohol- containing products (e.g., cough and cold syrups, aftershave), amprenavir oral solution, disulfiram, lopinavir/ritonavir oral solution. If you are currently using any of these medications listed above, tell your doctor or pharmacist before starting metronidazole. Before using this medication, tell your doctor or pharmacist of all prescription and nonprescription/herbal products you may use, especially of: "blood thinners" (e.g., warfarin), busulfan, cimetidine, fluorouracil, lithium, mebendazole, live bacterial vaccines, drugs for seizures (e.g., phenobarbital, phenytoin). This medication may interfere with certain laboratory tests (including liver function tests, blood triglyceride levels), possibly causing false test results. Make sure laboratory personnel and your doctors know you use this drug. This document does not contain all possible interactions. Therefore, before using this product, tell your doctor or pharmacist of all the products you use. Keep a list of all your medications with you, and share the list with your doctor and pharmacist. Sepsis Event Note - Evaluation Sepsis Screening Result: No Definite Risk - Focused Exam Vital Signs: Vital Signs Temp Pulse Resp BP Pulse Ox 05/05/19 20:49 67 18 151/90 H 05/05/19 19:00 37.1 C 78 18 152/100 H 97 Date Exam was Performed: 05/05/19 Time Exam was Performed: 23:47 - My Orders Last 24 Hours: My Active Orders 05/05/19 19:42 Sodium Chloride 0.9% [Saline Flush] 10 ml FLUSH ASDIRECTED PRN Sodium Chloride 0.9% [Saline Flush] 2.5 ml FLUSH ASDIRECTED PRN Saline Lock Insert [OM.PC] Stat 05/05/19 19:45 Sodium Chloride 0.9% [Normal Saline] 1,000 ml IV ASDIRECTED 05/05/19 23:21 EKG 12 Lead [EKG Documentation Completion] [RC] STAT - Assessment/Plan Last 24 Hours: My Active Orders 05/05/19 19:42 Sodium Chloride 0.9% [Saline Flush] 10 ml FLUSH ASDIRECTED PRN Sodium Chloride 0.9% [Saline Flush] 2.5 ml FLUSH ASDIRECTED PRN Saline Lock Insert [OM.PC] Stat 05/05/19 19:45 Sodium Chloride 0.9% [Normal Saline] 1,000 ml IV ASDIRECTED 05/05/19 23:21 EKG 12 Lead [EKG Documentation Completion] [RC] STAT
[2019-05-05] MEDS ORDERED: metroNIDAZOLE 250 MG Tab PO ONE (23:47)
[2019-05-05] MEDS ORDERED: Ciprofloxacin 500 MG Tab PO ONE (23:47)
== END 2019-05-06 00:06 | disposition home or self-care (01) ==
LOC: MW.ED 18:49
DX: R10.9 Unspecified abdominal pain (principal); R11.2 Nausea with vomiting, unspecified; M10.9 Gout, unspecified; Z79.899 Other long term (current) drug therapy
CPT/HCPCS: 36415; 71045; 74177; 80053; 81001; 82150; 83690; 84484; 85025; 93005; 96361; 96374; 96375; 99284; J1885; J2405; J7030; Q9967

== ENCOUNTER 2021-05-28 07:17 | Inpatient (IN) | payer SELFPAY ==
[2021-05-28] MEDS ORDERED: Sodium Chloride 0.9% 10 ML Syringe FLUSH PRN ×2 (07:31→14:06)
[2021-05-28] MEDS ORDERED: Sodium Chloride 0.9% 2.5 ML Syringe FLUSH PRN ×2 (07:31→14:06)
[2021-05-28] MEDS ORDERED: Thiamine 100 MG Tab PO ONE (07:33)
[2021-05-28] MEDS ORDERED: Folic Acid 1 MG Tab PO ONE (07:33)
[2021-05-28 08:31] LABS: BLOOD UREA NITROGEN,BUN 9 mg/dL (7.0-18.0); CARBON DIOXIDE,CO2 24.6 mmol/L (21.0-32.0); CHLORIDE,CL 100 mmol/L (98-107); GLUCOSE RANDOM 114 mg/dL (74-106); POTASSIUM,K 3.6 mmol/L (3.5-5.1); SODIUM,NA 139 mmol/L (136-148)
[2021-05-28] MEDS ORDERED: LORazepam 2 MG/ML SDV IVPUSH ONE (12:35)
[2021-05-28] MEDS ORDERED: Albuterol/Ipratropium 3.0-0.5 MG/3 ML Neb Soln NEB PRN (13:47)
[2021-05-28] MEDS ORDERED: LORazepam 2 MG/ML SDV IVPUSH PRN ×2 (14:02)
[2021-05-28] MEDS ORDERED: Ondansetron 4 MG/2 ML SDV IVPUSH PRN (14:06)
[2021-05-28] MEDS: Enoxaparin 40 MG/0.4 ML Syringe SUBCUT SCH (14:50)
[2021-05-28] MEDS: Lactated Ringers 1,000 ML IV SCH ×2 (14:50→23:10)
[2021-05-28] MEDS: Pantoprazole 40 MG in Sodium Chloride 0.9% 10 ML IVPUSH SCH (15:06)
[2021-05-28] MEDS: Folic Acid 1 MG Tab PO SCH (20:34)
[2021-05-28] MEDS: Thiamine 100 MG Tab PO SCH (20:35)
[2021-05-29 09:07] LABS: BLOOD UREA NITROGEN,BUN 8 mg/dL (7.0-18.0); CARBON DIOXIDE,CO2 25.1 mmol/L (21.0-32.0); CHLORIDE,CL 101 mmol/L (98-107); GLUCOSE RANDOM 91 mg/dL (74-106); POTASSIUM,K 3.7 mmol/L (3.5-5.1); SODIUM,NA 137 mmol/L (136-148)
[2021-05-29] MEDS: Pantoprazole 40 MG in Sodium Chloride 0.9% 10 ML IVPUSH SCH (14:39)
[2021-05-29] MEDS: Enoxaparin 40 MG/0.4 ML Syringe SUBCUT SCH (14:41)
[2021-05-29] MEDS: Thiamine 100 MG Tab PO SCH (21:01)
[2021-05-29] MEDS: Folic Acid 1 MG Tab PO SCH (22:47)
[2021-05-30 08:29] LABS: BLOOD UREA NITROGEN,BUN 10 mg/dL (7.0-18.0); CARBON DIOXIDE,CO2 25.7 mmol/L (21.0-32.0); CHLORIDE,CL 102 mmol/L (98-107); GLUCOSE RANDOM 80 mg/dL (74-106); SODIUM,NA 137 mmol/L (136-148)
[2021-05-30] MEDS ORDERED: Ketorolac 30 MG/ML SDV IVPUSH ONE (10:38)
== END 2021-05-30 12:35 | disposition home or self-care (01) | DRG 896 ==
LOC: MW.ED 07:17 → MW.ICU 12:36 → MW.MS 05-29 13:25
PROVIDERS: ADMIT Student in an Organized Health Care Education/Training Program; ATTEND Student in an Organized Health Care Education/Training Program
DX: F10.231 Alcohol dependence with withdrawal delirium (principal); U07.1 COVID-19; F32.A Depression, unspecified; J45.909 Unspecified asthma, uncomplicated
CPT/HCPCS: 36415; 70450; 70450-26; 80053; 80305-QW; 80307; 81001; 83735; 84100; 84439; 84443; 85025; 87086; 93005; 96374; 96375; 96376; 99285-25; A9270-GY; C9113; J1650; J1885; J2060; J3360; J7120; U0002